=== PATIENT | female | born 1960 | race Caucasian/White ===

== ENCOUNTER → 2016-11-26 | Outpatient (CLI) | payer OTHER ==
--- NOTE | 2016-11-27 14:24 | MAMMOGRAPHY REPORT ---
BILATERAL DIGITAL SCREENING MAMMOGRAM TOMOSYNTHESIS WITH CAD: 11/26/2016 CLINICAL HISTORY: Routine screening. Patient has no complaints. TECHNIQUE: Breast tomosynthesis in addition to standard 2D mammography was performed. Current study was also evaluated with a Computer Aided Detection (CAD) system. COMPARISON: Comparison is made to exams dated: 11/21/2015 mammogram, 11/16/2014 mammogram, 11/08/2013 mammogram, 10/02/2012 mammogram, 09/25/2011 mammogram, and 09/24/2010 mammogram - [facility]. BREAST COMPOSITION: The tissue of both breasts is heterogeneously dense, which may obscure small ma sses. FINDINGS: There is stable focal asymmetry in the upper outer posterior left breast. No new suspicio us mass, architectural distortion or cluster of microcalcifications is seen. IMPRESSION: ACR BI-RADS CATEGORY 1: NEGATIVE There is no mammographic evidence of malignancy. A 1 year screening mammogram is recommended. The p atient will receive written notification of the results. Approximately 10% of breast cancers are not detected with mammography. A negative mammographic repor t should not delay biopsy if a clinically suggestive mass is present. Lenora Urias M.D. ay/:11/26/2016 16:39:13 Software Design Manager: Eli BISWAS(Murray)(Zakiya)(BD), [facility] letter sent: Normal 1/2 BI-RADS Code: ACR BI-RADS Category 1: Negative
== END | disposition home or self-care (01) ==
LOC: C.MAMM 13:07
PROVIDERS: ATTEND Family Medicine
DX: Z12.31 Encounter for screening mammogram for malignant neoplasm of breast (principal)

== ENCOUNTER → 2016-12-18 | Outpatient (CLI) | payer OTHER ==
[2016-12-18 09:47] LABS: ALT/SGPT 18 U/L (12-78); BLOOD UREA NITROGEN 10 mg/dl (7-18); CALCIUM 9.3 mg/dl (8.5-10.1); CARBON DIOXIDE 29 mmol/L (21-32); CHLORIDE 105 mmol/L (98-107); CHOLESTEROL 233 mg/dl (0-200); GLUCOSE 83 mg/dl (70-99); POTASSIUM 3.8 mmol/L (3.5-5.1); SODIUM 143 mmol/L (136-145)
[2016-12-18 09:50] LABS: ALB/GLOB RATIO 1.2 (0.9-2); ALKALINE PHOSPHATASE 70 U/L (45-117); AST/SGOT 18 U/L (15-37); CHOLESTEROL/HDL RATIO 3.1; HDL CHOLESTEROL 76 mg/dl; LDL CHOLESTEROL CALCULATED 147 mg/dl; TRIGLYCERIDES 48 mg/dl (0-150); VERY LOW DENSITY LIPOPROT CALC 10 mg/dl
== END | disposition home or self-care (01) ==
LOC: C.LAB 07:22
PROVIDERS: ATTEND Family Medicine
DX: I10 Essential (primary) hypertension (principal); Z13.220 Encounter for screening for lipoid disorders; Z13.228 Encounter for screening for other metabolic disorders

== ENCOUNTER → 2017-06-30 | Outpatient (CLI) | payer OTHER | END | disposition home or self-care (01) | LOC: C.MAMM 13:05 | PROVIDERS: ATTEND Family Medicine | DX: M85.80 Other specified disorders of bone density and structure, unspecified site (principal) ==

== ENCOUNTER → 2017-07-22 | Outpatient (CLI) | payer OTHER ==
[2017-07-22 10:10] LABS: ALB/GLOB RATIO 1.1 (0.9-2); ALKALINE PHOSPHATASE 96 U/L (45-117); ALT/SGPT 19 U/L (12-78); AST/SGOT 14 U/L (15-37); BLOOD UREA NITROGEN 13 mg/dl (7-18); BUN/CREATININE RATIO 20.1 (10-20); CALCIUM 8.9 mg/dl (8.5-10.1); CARBON DIOXIDE 31 mmol/L (21-32); CHLORIDE 101 mmol/L (98-107); CREATININE 0.67 mg/dl (0.60-1.20); GLUCOSE 65 mg/dl (70-99); HDL CHOLESTEROL 75 mg/dl; POTASSIUM 3.9 mmol/L (3.5-5.1); SODIUM 137 mmol/L (136-145); TRIGLYCERIDES 41 mg/dl (0-150); VERY LOW DENSITY LIPOPROT CALC 8 mg/dl
[2017-07-22 10:18] LABS: CHOLESTEROL 236 mg/dl (0-200); CHOLESTEROL/HDL RATIO 3.1; LDL CHOLESTEROL CALCULATED 153 mg/dl
== END | disposition home or self-care (01) ==
LOC: C.LAB 08:15
PROVIDERS: ATTEND Family Medicine
DX: M85.80 Other specified disorders of bone density and structure, unspecified site (principal); I10 Essential (primary) hypertension

== ENCOUNTER → 2017-08-05 | Outpatient (CLI) | payer OTHER ==
[2017-08-05 09:33] LABS: BASO % 0.7 %; BASO ABS # 0.04 K/uL (0-0.2); COMPLETE YES; EOS % 2.9 %; HEMATOCRIT 41.7 % (37-47); IG% 0.2 %; LYMPH % 37.4 %; LYMPH ABS # 2.18 K/uL (1.2-3.4); MEAN CELL VOLUME 90.7 fL (80-100); MEAN CORPUSCULAR HEMOGLOBIN 30.7 pg (25-34); MEAN CORPUSCULAR HGB CONC 33.8 g/dl (32-36); MEAN PLATELET VOLUME 10.3 fL (7.4-10.4); MONO % 8.9 %; NEUT % 49.9 %; PLATELET COUNT 291 K/uL (130-400); WHITE BLOOD COUNT 5.83 K/uL (4.8-10.8)
== END | disposition home or self-care (01) ==
LOC: C.LAB 07:34
PROVIDERS: ATTEND Family Medicine
DX: E16.2 Hypoglycemia, unspecified (principal); R59.9 Enlarged lymph nodes, unspecified

== ENCOUNTER → 2017-08-06 | Outpatient (CLI) | payer OTHER ==
--- NOTE | 2017-08-06 15:54 | DIAGNOSTIC IMAGING REPORT ---
SOFT TISS HEAD/NECK-THYROID CLINICAL HISTORY: 57 years-old Female presenting with ENLARGED LYMPH NODES. TECHNIQUE: Real-time grayscale and color Doppler ultrasound imaging of the thyroid and base of the neck was performed. COMPARISON: None. FINDINGS: No enlarged right cervical lymph nodes. A prominent left cervical lymph node in the 70 to the region measures 1.2 x 0.5 x 1.3 cm, maintaining a normal fatty hilum and benign morphology. An additional smaller benign appearing lymph node measures 1.4 x 0.7 x 0.3 cm more inferiorly in the left neck. Right lobe: Normal echogenicity and echotexture. The right lobe of the thyroid measures 5.9 x 1.6 x 1.7 cm. 2 nodules: 1.) Interpolar to lower pole heterogeneously isoechoic to hyperechoic nodule measuring 3.0 x 1.1 x 1.7 cm (low suspicion pattern) 2) mid pole cyst measuring 0.4 x 0.3 x 0.3 cm (benign) Left lobe: Normal echogenicity and echotexture. The left lobe of the thyroid measures 4.8 x 1.4 x 1.2 cm. A partially cystic, partially solid nodule in the upper pole to interpolar region measures 1.1 x 0.8 x 0.6 cm (very low suspicion pattern) Isthmus: The isthmus measures 4 mm in thickness. 0.4 x 0.4 x 0.2 cm cyst noted. IMPRESSION: 1. Benign-appearing lymph nodes in the left cervical region. 2. Incidental note made of several thyroid cysts and a right thyroid lobe nodule. Given the size of the low suspicion pattern nodule in the interpolar to lower pole of the right lobe, fine-needle aspiration is recommended per the [place] [employer] criteria. Electronically signed by: Dinesh Donaldson M.D. 08/06/2017 3:53 PM Dictated Date/Time: 08/06/2017 3:19 PM
== END | disposition home or self-care (01) ==
LOC: C.ULTRBC 14:47
PROVIDERS: ATTEND Family Medicine
DX: R59.0 Localized enlarged lymph nodes (principal); E04.1 Nontoxic single thyroid nodule

== ENCOUNTER → 2017-09-08 | Outpatient (CLI) | payer OTHER ==
--- NOTE | 2017-09-08 13:59 | DIAGNOSTIC IMAGING REPORT ---
ULTRASOUND-GUIDED FINE-NEEDLE ASPIRATION BIOPSY OF A RIGHT LOBE THYROID NODULE CLINICAL HISTORY: E041 NONTOXIC SINGLE THYROID NODULE COMPARISON STUDY: Thyroid ultrasonography dated 08/06/2017 FINDINGS: A timeout was performed. The risks of the procedure were explained the patient informed consent was obtained. Patient prepped in sterile fashion. The skin was anesthetized 1% lidocaine. Under ultrasound guidance, 2 passes with a 25-gauge needle were performed into the patient's dominant right lobe thyroid nodule. Initial pathologic review indicates satisfactory material for diagnosis. There were no immediate complication. IMPRESSION: Successful ultrasound-guided fine-needle aspiration biopsy of a 3 cm right lobe thyroid nodule. Electronically signed by: Morro Baldwin M.D. 09/08/2017 1:57 PM Dictated Date/Time: 09/08/2017 1:56 PM
== END | disposition home or self-care (01) ==
LOC: C.ULTR 12:35
PROVIDERS: ATTEND Family Medicine
DX: E04.1 Nontoxic single thyroid nodule (principal)

== ENCOUNTER → 2017-12-01 | Outpatient (CLI) | payer OTHER ==
--- NOTE | 2017-12-01 14:42 | MAMMOGRAPHY REPORT ---
BILATERAL DIGITAL SCREENING MAMMOGRAM TOMOSYNTHESIS WITH CAD: 12/01/2017 CLINICAL HISTORY: Routine screening. Patient has no complaints. TECHNIQUE: Breast tomosynthesis in addition to standard 2D mammography was performed. Current study was also evaluated with a Computer Aided Detection (CAD) system. COMPARISON: Comparison is made to exams dated: 11/26/2016 mammogram, 11/21/2015 mammogram, 11/16/2014 ma mmogram, 11/08/2013 mammogram, 10/02/2012 mammogram, and 09/24/2010 mammogram - [facility]. BREAST COMPOSITION: The tissue of both breasts is heterogeneously dense, which may obscure small mas ses. FINDINGS: There are stable postsurgical changes in the breasts. No developing mass, architectural di stortion or cluster of suspicious microcalcifications is seen. IMPRESSION: ACR BI-RADS CATEGORY 2: BENIGN There is no mammographic evidence of malignancy. A 1 year screening mammogram is recommended. The pa tient will receive written notification of the results. Approximately 10% of breast cancers are not detected with mammography. A negative mammographic report should not delay biopsy if a clinically suggestive mass is present. Lenora Urias M.D. ay/:12/01/2017 14:34:14 [employer]cery Store Bagger: Lorena BISWAS(R)(M), [facility] letter sent: Normal 1/2 BI-RADS Code: ACR BI-RADS Category 2: Benign
== END | disposition home or self-care (01) ==
LOC: C.MAMM 12:49
PROVIDERS: ATTEND Family Medicine
DX: Z12.31 Encounter for screening mammogram for malignant neoplasm of breast (principal)